=== PATIENT | female | born 1955 | race Caucasian/White ===

== ENCOUNTER → 2016-12-31 | Outpatient (CLI) | payer BC, OTHER ==
[~2016-12-31] MED LIST: AVAPRO; CALICUM 500+D1 EACH; CLEOCIN HCL300 MG PO; LEVAQUIN 500 M500 MG PO; LIPITOR20 MG PO; MAGNESIUM100 MG
== END ==
LOC: RAD 12-30 11:17
DX: Z12.31 Encounter for screening mammogram for malignant neoplasm of breast (principal); Z78.0 Asymptomatic menopausal state

== ENCOUNTER → 2018-08-27 | Outpatient (CLI) | payer BC, OTHER | LOC: RAD 03:06 | DX: Z12.31 Encounter for screening mammogram for malignant neoplasm of breast (principal) ==

== ENCOUNTER → 2019-11-09 | Outpatient (CLI) | payer OTHER | LOC: BC 09-15 12:50 → RAD 09-15 16:27 → BC 08:21 | DX: Z12.31 Encounter for screening mammogram for malignant neoplasm of breast (principal) ==

== ENCOUNTER → 2019-11-18 | Outpatient (CLI) | payer OTHER | LOC: RAD 10:50 | DX: R92.1 Mammographic calcification found on diagnostic imaging of breast (principal) ==

== ENCOUNTER → 2020-11-21 | Outpatient (CLI) | payer OTHER | LOC: BC 08:36 | PROVIDERS: ATTEND Internal Medicine | DX: Z12.31 Encounter for screening mammogram for malignant neoplasm of breast (principal) ==